=== PATIENT | female | born 1955 | race Caucasian/White ===

== ENCOUNTER 2019-03-18 16:19 | Emergency (ER) | payer OTHER ==
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
[2019-03-18 16:56] VITALS: BP 136/76; PULSE 91; TEMP 98; BMI 24.1
== END 2019-03-18 16:54 | disposition home or self-care (01) ==
LOC: FER 16:19
DX: S40.272A Other superficial bite of left shoulder, initial encounter (principal); Y04.1XXA Assault by human bite, initial encounter; Y93.F9 Activity, other caregiving; Y92.210 Daycare center as the place of occurrence of the external cause; Y99.0 Civilian activity done for income or pay; Z85.3 Personal history of malignant neoplasm of breast; E03.9 Hypothyroidism, unspecified; E78.00 Pure hypercholesterolemia, unspecified; Z88.5 Allergy status to narcotic agent
CPT/HCPCS: 99281-25